=== PATIENT | male | born 1995 | race Caucasian/White ===

== ENCOUNTER 2020-11-16 11:29 | Observation (INO) | payer OTHER ==
[~2020-11-16] VITALS: Ht 182.9 cm; Wt 97.5 kg
[2020-11-16 14:50] LABS: HEMOGLOBIN 19.4 gm/dl (14.0-17.5); RED BLOOD COUNT 6.31 M/UL (4.20-5.50); WHITE BLOOD COUNT 11.8 K/UL (4.5-11.0)
[2020-11-16 15:11] LABS: BUN/CREATININE RATIO 8 (0-10)
[2020-11-16] MEDS ORDERED: TRAZODONE HCL50 MG PO (19:51)
--- NOTE | 2020-11-17 00:49 | NUR ---
PT ADMITTED FROM ER,THERE WAS ORDER FOR NG TUBE PLACEMENT WRITTEN AT AROUND 1600 IN ER , CALLED THE REPORTING NURSE PRAVEEN SHE STATED THAT THE ORDER FOR NG HAD BEEN D/C
--- NOTE | 2020-11-18 10:44 | NUR ---
PT D/CD AT THIS TIME WAITING ON RIDE AND UNDERSTANDS DC INSTRUCTIONS
== END 2020-11-18 10:58 | disposition home or self-care (01) ==
LOC: ER1 11:29 → CDU 17:03 → M/S 19:03
PROVIDERS: Emergency Medicine; ADMIT Surgery
DX: K56.609 Unspecified intestinal obstruction, unspecified as to partial versus complete obstruction (principal); F17.200 Nicotine dependence, unspecified, uncomplicated; Z20.822 Contact with and (suspected) exposure to COVID-19; K76.0 Fatty (change of) liver, not elsewhere classified
CPT/HCPCS: 80053; 81001; 83690; 85025; 96372; 96374; 96375; 96376; 99285; G0378; J2270; J2405; Q9967; U0002

== ENCOUNTER → 2020-12-05 | Outpatient (CLI) | payer OTHER ==
[~2020-12-05] MED LIST: TRAZODONE HCL50 MG PO
== END ==
LOC: CT 07:23
DX: Z87.19 Personal history of other diseases of the digestive system (principal)
CPT/HCPCS: Q9967